=== PATIENT | male | born 2000 | race Caucasian/White ===

== ENCOUNTER 2022-03-12 12:55 | Emergency (ER) | payer OTHER, BC ==
[2022-03-12] MEDS ORDERED: Lidocaine 1% (PF) 30 ML VIAL ONE (13:32)
[2022-03-12] MEDS ORDERED: Boostrix 0.5 ML (Tdap) VIAL ONE (13:32)
[2022-03-12] MEDS ORDERED: Bacitracin 1 PK ONE (14:32)
== END 2022-03-12 14:50 | disposition home or self-care (01) ==
LOC: CSHERS 12:55
DX: S61.012A Laceration without foreign body of left thumb without damage to nail, initial encounter (principal); W26.8XXA Contact with other sharp object(s), not elsewhere classified, initial encounter; Y92.69 Other specified industrial and construction area as the place of occurrence of the external cause; Z23 Encounter for immunization
CPT/HCPCS: 12004; 90471; 90715; J2001